=== PATIENT | male | born 2000 | race Caucasian/White ===

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

== ENCOUNTER 2022-09-09 16:55 | Emergency (ER) | payer OTHER | END 2022-09-09 18:29 | disposition left against medical advice (07) | LOC: ED 16:55 | DX: M79.10 Myalgia, unspecified site (principal); Z53.21 Procedure and treatment not carried out due to patient leaving prior to being seen by health care provider ==

== ENCOUNTER 2023-05-22 00:08 | Emergency (ER) | payer BC ==
[~2023-05-22] VITALS: Ht 182.8 cm; Wt 81.6 kg
[2023-05-22 00:21] VITALS: BP 143/79
[2023-05-22] MEDS ORDERED: IMODIUM A-D2 M2 PO (00:32)
[2023-05-22] MEDS ORDERED: ONDANSETRON4 MG SL (00:32)
== END 2023-05-22 02:41 | disposition home or self-care (01) ==
LOC: ED 00:08
DX: J10.1 Influenza due to other identified influenza virus with other respiratory manifestations (principal); R11.2 Nausea with vomiting, unspecified; R19.7 Diarrhea, unspecified